=== PATIENT | male | born 1950 | race Caucasian/White ===

== ENCOUNTER 2017-04-04 21:58 | Emergency (ER) | payer MEDICARE ==
[2017-04-04] MEDS ORDERED: Alum Hydrox/Mag Hydrox/Simeth 15 ML, Lidocaine 2% 15 ML PO ONE ×2 (22:14)
--- NOTE | 2017-04-04 22:16 | EDM.PDOC ---
ED HPI GENERAL MEDICAL PROBLEM - General Chief Complaint: Respiratory Problem Stated Complaint: SOB Time Seen by Provider: 04/04/17 22:07 Source of Information: Reports: Patient, Family, Old Records, RN Notes Reviewed History Limitations: Reports: No Limitations - History of Present Illness INITIAL COMMENTS - FREE TEXT/NARRATIVE: 66-year-old gentleman presents emergency department day complaint of shortness of breath, he has a known history of reflux disease he states he was asleep he had some reflux and he may have aspirated it had a severe coughing fit which now continues still has a burning sensation in his chest also of note is he recently returned from a trip from [place] with a 22 hour flight one week ago. Review of clinic records show that is that he was in the clinic yesterday for increased hearing loss however in review of systems he has had cough shortness of breath and sputum production for one week - Related Data Allergies Allergy/AdvReac Type Severity Reaction Status Date / Time Sulfa (Sulfonamide Allergy Nausea Verified 04/04/17 22:02 Antibiotics) Home Meds: Home Meds Fluticasone Propionate [Flonase] 2 puff IN DAILY 04/04/17 [History] Loratadine/Pseudoephedrine [Claritin-D 24 Hour Tablet] 1 each PO DAILY 04/04/17 [History] Terbinafine HCl [Terbinafine] 1 tab PO DAILY 04/04/17 [History] Past Medical History Respiratory History: Reports: Asthma Gastrointestinal History: Reports: GERD - Infectious Disease History Infectious Disease History: Reports: Chicken Pox Social & Family History - Tobacco Use Smoking Status *Q: Never Smoker - Caffeine Use Caffeine Use: Reports: Coffee - Recreational Drug Use Recreational Drug Use: No ED ROS GENERAL - Review of Systems Review Of Systems: See Below Constitutional: Reports: Diaphoresis HEENT: Reports: No Symptoms Respiratory: Reports: Shortness of Breath, Cough. Denies: Wheezing, Sputum Cardiovascular: Reports: Chest Pain GI/Abdominal: Reports: No Symptoms : Reports: No Symptoms Musculoskeletal: Reports: No Symptoms Skin: Reports: No Symptoms Neurological: Reports: No Symptoms ED EXAM, GENERAL - Physical Exam Exam: See Below Free Text/Narrative:: General: Male, uncomfortable coughing, alert and oriented x3 HEENT: head is atraumatic normocephalic, eyes pupils equal round reactive to light, sclera clear no conjunctivitis appreciated. Ears tympanic membrane on the left blocked by cerumen right clear and jansen canals are clear. Nose no septal deviation, nares are clear, no blood present. Mouth mucosa is moist and pink no erythema or exudate noted in soft palate, tongue is midline uvula is midline , dentition is intact. Neck: Supple no thyromegaly no tracheal deviation. Nodes: Cervical nodes subclavicular nodes nontender no palpable lymphadenopathy noted. Lungs: clear to auscultation bilaterally with symmetrical respirations, no adventitious noise appreciated. CV: Regular rate and rhythm S1 and S2 appreciated no murmurs rubs or gallops noted. Abdomen: Soft, nontender, no palpable masses or organomegaly appreciated, no distention no guarding bowel sounds are present, . Neuro: Cranial nerves II through XII grossly intact Skin: Warm and dry, intact Extremities: No lower extremity edema appreciated, Course - Vital Signs Last Recorded V/S: Last Vital Signs Temp 96.6 F 04/04/17 22:09 Pulse 85 04/04/17 22:27 Resp 20 04/04/17 22:27 BP 144/83 H 04/04/17 22:27 Pulse Ox 93 L 04/04/17 22:42 - Orders/Labs/Meds Orders: Active Orders 24 hr Category Date Time Status Cardiac Monitoring [RC] .As Directed Care 04/04/17 22:12 Active EKG Documentation Completion [RC] ASDIRECTED Care 04/04/17 22:13 Active RT Aerosol Therapy [RC] ASDIRECTED Care 04/04/17 22:34 Ordered Chest 2V [CR] Stat Exams 04/04/17 22:13 Ordered EKG 12 Lead [EK] Stat Ther 04/04/17 22:13 Ordered Labs: Laboratory Tests 04/04/17 04/04/17 04/04/17 Range/Units 22:24 22:24 22:24 WBC 5.7 (4.5-11.0) K/uL RBC 4.98 (4.30-5.90) M/uL Hgb 14.7 (12.0-15.0) g/dL Hct 42.6 (40.0-54.0) % MCV 86 (80-98) fL MCH 30 (27-31) pg MCHC 35 (32-36) % Plt Count 226 (150-400) K/uL Neut % (Auto) 50 (36-66) % Lymph % (Auto) 23 L (24-44) % [place] % (Auto) 11 H (2-6) % Eos % (Auto) 16 H (2-4) % Baso % (Auto) 1 (0-1) % D-Dimer, Quantitative < 100 (0.0-400.0) ng/mL Sodium 142 (140-148) mmol/L Potassium 3.4 L (3.6-5.2) mmol/L Chloride 107 (100-108) mmol/L Carbon Dioxide 24 (21-32) mmol/L Anion Gap 14.4 H (5.0-14.0) mmol/L BUN 19 H (7-18) mg/dL Creatinine 1.3 (0.8-1.3) mg/dL Est Cr Clr Drug Dosing 52.26 mL/min Estimated GFR (MDRD) 55 L (>60) Glucose 116 H (74-106) mg/dL Lactic Acid (0.4-2.0) mmol/L Calcium 8.2 L (8.5-10.1) mg/dL Total Bilirubin 0.3 (0.2-1.0) mg/dL AST 19 (15-37) U/L ALT 29 (12-78) U/L Alkaline Phosphatase 66 (46-116) U/L CK-MB (CK-2) 0.9 (0-3.6) mg/mL Troponin I < 0.017 (0.000-0.056) ng/mL Total Protein 6.6 (6.4-8.2) g/dL Albumin 3.4 (3.4-5.0) g/dL Globulin 3.2 (2.3-3.5) g/dL Albumin/Globulin Ratio 1.1 L (1.2-2.2) Ethyl Alcohol mg/dL 04/04/17 04/04/17 Range/Units 22:24 22:24 WBC (4.5-11.0) K/uL RBC (4.30-5.90) M/uL Hgb (12.0-15.0) g/dL Hct (40.0-54.0) % MCV (80-98) fL MCH (27-31) pg MCHC (32-36) % Plt Count (150-400) K/uL Neut % (Auto) (36-66) % Lymph % (Auto) (24-44) % [place] % (Auto) (2-6) % Eos % (Auto) (2-4) % Baso % (Auto) (0-1) % D-Dimer, Quantitative (0.0-400.0) ng/mL Sodium (140-148) mmol/L Potassium (3.6-5.2) mmol/L Chloride (100-108) mmol/L Carbon Dioxide (21-32) mmol/L Anion Gap (5.0-14.0) mmol/L BUN (7-18) mg/dL Creatinine (0.8-1.3) mg/dL Est Cr Clr Drug Dosing mL/min Estimated GFR (MDRD) (>60) Glucose (74-106) mg/dL Lactic Acid 1.6 (0.4-2.0) mmol/L Calcium (8.5-10.1) mg/dL Total Bilirubin (0.2-1.0) mg/dL AST (15-37) U/L ALT (12-78) U/L Alkaline Phosphatase (46-116) U/L CK-MB (CK-2) (0-3.6) mg/mL Troponin I (0.000-0.056) ng/mL Total Protein (6.4-8.2) g/dL Albumin (3.4-5.0) g/dL Globulin (2.3-3.5) g/dL Albumin/Globulin Ratio (1.2-2.2) Ethyl Alcohol < 3 mg/dL Meds: Medications Discontinued Medications Generic Name Dose Route Start Last Admin Trade Name Hailey PRN Reason Stop Dose Admin Albuterol/Ipratropium 3 ml 04/04/17 22:34 04/04/17 22:41 Duoneb 3.0-0.5 Mg/3 Ml NEB 04/04/17 22:35 3 ml ONETIME ONE Administration Al Hydroxide/Mg Hydroxide 15 0 ml 04/04/17 22:14 04/04/17 22:24 ml/ Lidocaine HCl 15 ml PO 04/04/17 22:15 30 ml ONETIME ONE Administration Departure - Departure Time of Disposition: 23:30 (He is) Disposition: Home, Self-Care 01 Condition: Good Clinical Impression: Cough - Discharge Information Referrals: Irvin Katz MD [Primary Care Provider] - Forms: ED Department Discharge Additional Instructions: Try the albuterol as needed to help suppress cough any fevers develop or chest congestion becomes worse recommend trial of antibiotics, Please followup with your primary care provider in 3-5 days if not better, please call return to the emergency department with worsening of symptoms. - My Orders Last 24 Hours: My Active Orders 04/04/17 22:12 Cardiac Monitoring [RC] .As Directed 04/04/17 22:13 EKG Documentation Completion [RC] ASDIRECTED Chest 2V [CR] Stat EKG 12 Lead [EK] Stat 04/04/17 22:34 RT Aerosol Therapy [RC] ASDIRECTED - Assessment/Plan Last 24 Hours: My Active Orders 04/04/17 22:12 Cardiac Monitoring [RC] .As Directed 04/04/17 22:13 EKG Documentation Completion [RC] ASDIRECTED Chest 2V [CR] Stat EKG 12 Lead [EK] Stat 04/04/17 22:34 RT Aerosol Therapy [RC] ASDIRECTED Plan: Assessment Acuity = acute Site and laterality = cough Etiology = unclear etiology asthma variant versus possible aspiration or bronchitis given that he has been ill for about 10 days from his recent travel with cough no sputum production Manifestations = none Location of injury = Home Lab values = CBC, CMP unremarkable, troponin negative chest x-ray I did not appreciate any acute processes be over read by radiology EKG demonstrates a left bundle branch block similar to 2016 Plan I did review lab work EKG chest x-ray results with him he had good relief combination albuterol ipratropium nebulizer as well as a GI cocktail coughing did improve he'll be discharged home with albuterol neb as well as a Z-Devin have him follow-up with primary care 3-5 days if no improvement Patient was in agreement with the plan all questions were answered, they were instructed to return to the emergency department or call for worsening symptoms. This note was dictated using [employer] voice recognition software please call with any questions.
[2017-04-04] MEDS ORDERED: Albuterol/Ipratropium 3.0-0.5 MG/3 ML Neb Soln NEB ONE (22:34)
--- NOTE | 2017-04-05 09:04 | CR ---
Chest 2V FINDINGS: The heart and vascular structures are normal in appearance. No infiltrates or effusions are demonstrated. The skeletal structures are unremarkable. IMPRESSION: Negative exam.
== END 2017-04-04 23:41 | disposition home or self-care (01) ==
LOC: JP.ED 21:58
DX: R05 Cough (principal); K21.0 Gastro-esophageal reflux disease with esophagitis; J45.909 Unspecified asthma, uncomplicated; Z79.899 Other long term (current) drug therapy; Z88.2 Allergy status to sulfonamides
CPT/HCPCS: 36415; 71020; 80053; 82553; 83605; 84484; 85025; 85379; 93005; 94640; 99285; A9270; G0480; J7620; 93010; 99284

== ENCOUNTER 2019-10-15 15:47 | Emergency (ER) | payer MEDICARE ==
--- NOTE | 2019-10-15 16:15 | EDM.PDOC ---
ED HPI GENERAL MEDICAL PROBLEM - General Chief Complaint: Laceration Stated Complaint: LACERATION TOP OF HEAD Time Seen by Provider: 10/15/19 16:00 Source of Information: Reports: Patient History Limitations: Reports: No Limitations - History of Present Illness INITIAL COMMENTS - FREE TEXT/NARRATIVE: 69-year-old male hit the top of his head on a wooden board while crawling in a crawl space. He has a 4 cm laceration on the top of his scalp, through the epidermis but not real deep. No loss of consciousness or other complaints. Onset: Sudden Duration: Hour(s): (Within the last hour) Location: Reports: Head Associated Symptoms: Reports: No Other Symptoms Head Pain Score (Numeric/FACES): 2 - Related Data Allergies Allergy/AdvReac Type Severity Reaction Status Date / Time Sulfa (Sulfonamide AdvReac Nausea Verified 10/15/19 16:02 Antibiotics) poly sorbet 80 Allergy Other Uncoded 10/15/19 16:04 Home Meds: Home Meds Fluticasone Propionate [Flonase] 2 puff IN DAILY PRN 04/04/17 [History] Loratadine/Pseudoephedrine [Claritin-D 24 Hour Tablet] 1 each PO DAILY PRN 04/04 [History] Terbinafine HCl [Terbinafine] 1 tab PO DAILY PRN 04/04/17 [History] Past Medical History HEENT History: Reports: Other (See Below) Other HEENT History: meniers Cardiovascular History: Reports: Other (See Below) Other Cardiovascular History: some kind of a difference in a beat from one year to next, pt states he's had a full work up done and his heart is 'okay' Respiratory History: Reports: Asthma Gastrointestinal History: Reports: GERD Musculoskeletal History: Reports: Other (See Below) Other Musculoskeletal History: toe nail fungus - Infectious Disease History Infectious Disease History: Reports: Chicken Pox Social & Family History - Tobacco Use Smoking Status *Q: Never Smoker - Caffeine Use Caffeine Use: Reports: Coffee - Recreational Drug Use Recreational Drug Use: No ED ROS GENERAL - Review of Systems Review Of Systems: See Below Constitutional: Denies: Fever, Chills Respiratory: Denies: Shortness of Breath Cardiovascular: Denies: Chest Pain GI/Abdominal: Denies: Nausea, Vomiting Neurological: Reports: Headache Psychiatric: Reports: No Symptoms ED EXAM, SKIN/RASH Exam: See Below Exam Limited By: No Limitations General Appearance: Alert, No Apparent Distress Head: Other (4 cm longitudinal laceration on the top of the scalp) Respiratory/Chest: No Respiratory Distress Course - Vital Signs Last Recorded V/S: Last Vital Signs Temp 97.3 F 10/15/19 16:01 Pulse 109 H 10/15/19 16:01 Resp 16 10/15/19 16:01 BP 129/82 10/15/19 16:01 Pulse Ox 94 L 10/15/19 16:01 - Re-Assessments/Exams Free Text/Narrative Re-Assessment/Exam: 10/15/19 16:13 3 konrad were used to approximate the edges of the laceration, no anesthesia needed. He will return on Tuesday to remove the konrad. Departure - Departure Time of Disposition: 16:22 Disposition: Home, Self-Care 01 Clinical Impression: Laceration of scalp Qualifiers: Encounter type: initial encounter Qualified Code(s): S01.01XA - Laceration without foreign body of scalp, initial encounter - Discharge Information Instructions: Laceration Care, Adult Referrals: Irvin Katz MD [Primary Care Provider] - Forms: ED Department Discharge Care Plan Goals: Keep wound covered and clean while healing, and return on Tuesday to remove konrad. Return sooner if concerns of infection or not healing satisfactorily. Sepsis Event Note - Evaluation Sepsis Screening Result: No Definite Risk - Focused Exam Date Exam was Performed: 10/16/19 Time Exam was Performed: 07:50
== END 2019-10-15 16:22 | disposition home or self-care (01) ==
LOC: JP.ED 15:47
DX: S01.01XA Laceration without foreign body of scalp, initial encounter (principal); Z88.2 Allergy status to sulfonamides; Z88.8 Allergy status to other drugs, medicaments and biological substances; W22.8XXA Striking against or struck by other objects, initial encounter
CPT/HCPCS: 12001; 12002; 99282

== ENCOUNTER 2019-10-20 06:37 | Emergency (ER) | payer MEDICARE | END 2019-10-20 06:47 | disposition left against medical advice (07) | LOC: JP.ED 06:37 | DX: Z53.21 Procedure and treatment not carried out due to patient leaving prior to being seen by health care provider (principal) ==